=== PATIENT | male | born 1995 | race Hispanic/Latino ===

== ENCOUNTER 2025-04-12 08:51 | Emergency (ER) | payer SELFPAY ==
[~2025-04-12] VITALS: Ht 170.2 cm; Wt 72.6 kg
[2025-04-12 09:00] VITALS: BP 135/86; PULSE 61; RESP 16; TEMP 98; O2SAT 98
[2025-04-12] MEDS ORDERED: BOOSTRIX TDAP IM ONE (09:14)
[2025-04-12] MEDS ORDERED: CEPH250C PO (09:38)
[2025-04-12] MEDS: BOOSTRIX TDAP IM ONE (09:40)
[2025-04-12 09:41] VITALS: BP 143/86; PULSE 66; RESP 16; O2SAT 97
== END 2025-04-12 09:42 | disposition home or self-care (01) ==
LOC: ER 08:51
DX: S61.213A Laceration without foreign body of left middle finger without damage to nail, initial encounter (principal); F12.90 Cannabis use, unspecified, uncomplicated; W31.89XA Contact with other specified machinery, initial encounter; Y93.89 Activity, other specified; Y92.89 Other specified places as the place of occurrence of the external cause; Y99.8 Other external cause status
CPT/HCPCS: 12001; 90471; 90715; 99283